=== PATIENT | male | born 1970 | race Caucasian/White ===

== ENCOUNTER 2017-05-09 07:34 | Emergency (ER) | payer SELFPAY ==
--- NOTE | 2017-05-09 07:37 | PDOC ---
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 Denies blood in urine. Denies fevers, chills, nausea, vomiting, diarrhea, or other sick symptoms. He is monogamous with one female over the past year. 05/09/17 08:25 Past History - Past Medical History Allergies/Adverse Reactions: Allergies Allergy/AdvReac Type Severity Reaction Status Date / Time No Known Allergies Allergy Verified 05/09/17 07:38 Home Medications: Ambulatory Orders Valacyclovir HCl [Valtrex -] 500 mg PO BID #6 tablet 05/09/17 - Suicide/Smoking/Psychosocial Hx Anxiety: No Suicidal Ideation: No Smoking History: Never smoked Have you smoked in the past 12 months: No Hx Alcohol Use: No Drug/Substance Use Hx: No Substance Use Type: None Review of Systems - Review of Systems Constitutional: No: Chills, Fever HEENTM: No: Blurred Vision Respiratory: No: Cough, Shortness of Breath Cardiac (ROS): No: Irregular Heart Rate, Chest Tightness ABD/GI: No: Constipated, Diarrhea, Nausea : Yes: Burning, Dysuria. No: Discharge Neurological: No: Headache *Physical Exam - Physical Exam General Appearance: Yes: Nourished, Appropriately Dressed. No: Apparent Distress HEENT: positive: EOMI, VIVIANA, Normal ENT Inspection, Normal Voice Neck: positive: Tender, Trachea midline, Normal Thyroid, Supple. negative: Rigid Respiratory/Chest: positive: Lungs Clear, Normal Breath Sounds. negative: Chest Tender, Respiratory Distress, Accessory Muscle Use Cardiovascular: positive: Regular Rhythm, Regular Rate, S1, S2. negative: Edema , JVD, Murmur Gastrointestinal/Abdominal: positive: Normal Bowel Sounds, Flat, Soft. negative : Tender Male Genitalia: positive: other (uncircumcised male with easily reducible foreskin and small vesicular lesions around the dorsal right edge of his foreskin that are not open, only minimally painful, and not draining any fluid.) . negative: normal genitalia Musculoskeletal: positive: Normal Inspection Extremity: positive: Normal Range of Motion Neurologic: positive: Fully Oriented, Alert, Normal Mood/Affect, Motor Strength 5/5 Medical Decision Making - Medical Decision Making 46 year old male with history of herpes presenting with dysuria and complaints of penile lesions. Currently not taking his acyclovir. Will get UA, UC, and HIV test (request per patient). 05/09/17 09:00 UA negative. This is most likely all related to his HSV. Will treat with a short course of valacyclovir.500 BID x 3 days. 05/09/17 09:55 *DC/Admit/Observation/Transfer Diagnosis at time of Disposition: Herpes, UTI (urinary tract infection) - Discharge Dispostion Disposition: HOME Condition at time of disposition: Stable Admit: No - Prescriptions Prescriptions: Valacyclovir HCl [Valtrex -] 500 mg PO BID #6 tablet - Patient Instructions Printed Discharge Instructions: DI for Genital Herpes Print Language: GRENADIAN
[2017-05-09 07:45] VITALS: TEMP 98.3; BMI 23.1
--- NOTE | 2017-05-09 08:51 | PDOC ---
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 States that he noticed these painful vesicular lesions. Currently sexually active with only. No other partners. Also noted some dysuria. No fevers, chills. - Physicial Exam PE: 05/09/17 08:53 GENERAL: Awake, alert, and fully oriented, in no acute distress. HEAD: No signs of trauma EYES: PERRLA, EOMI, sclera anicteric, conjunctiva clear ENT: Auricles normal inspection, hearing grossly normal, nares patent, oropharynx clear without exudates. NECK: Normal ROM, supple, no lymphadenopathy, JVD, or masses : No testicular tenderness or lesions. No drainage or purulence from the urethra. Several healing vesicular lesions on the penis. EXTREMITIES: Normal range of motion, no edema. No clubbing or cyanosis. No cords, erythema, or tenderness NEUROLOGICAL: Cranial nerves II through XII grossly intact. Normal speech, normal gait SKIN: Warm, Dry, normal turgor, no rashes or lesions noted. - Medical Decision Making 05/09/17 08:56 Vital Signs Temp Pulse Resp BP Pulse Ox 98.3 F 70 16 140/90 99 05/09/17 07:38 05/09/17 07:38 05/09/17 07:38 05/09/17 07:38 05/09/17 07:38 Symptoms are concerning for herpes lesions. Will need antivirals. UA to r/o UTI. If UA positive for infection, PO abx.
[2017-05-09 09:27] LABS: URINE APPEARANCE CLEAR; URINE BILIRUBIN NEGATIVE (NEGATIVE); URINE BLOOD NEGATIVE (NEGATIVE); URINE COLOR YELLOW; URINE GLUCOSE (UA) NEGATIVE (NEGATIVE); URINE KETONE NEGATIVE (NEGATIVE); URINE NITRITE NEGATIVE (NEGATIVE); URINE PROTEIN NEGATIVE (NEGATIVE); URINE UROBILINOGEN NEGATIVE mg/dL (0.2-1.0)
[2017-05-09 09:46] LABS: HIV 1 & 2 AB NEGATIVE; HIV 1 AGp24 NEGATIVE
[2017-05-09 10:32] VITALS: BP 136/70; PULSE 80
== END 2017-05-09 10:32 | disposition home or self-care (01) ==
LOC: JER 07:34
DX: N39.0 Urinary tract infection, site not specified (principal); A60.01 Herpesviral infection of penis
CPT/HCPCS: 36415; 81003; 87086; 87389; 99282-25